=== PATIENT | female | born 1945 | race Two or more races ===

== ENCOUNTER 2017-05-27 17:26 | Emergency (ER) | payer MEDICARE, OTHER ==
--- NOTE | ~2017-05-27 | ER ---
PATIENT'S NAME: [facility] AGE: 72 Y [address] ROOM: [place], [place] [address] LOCATION: [facility] ADMIT DATE: 05/27/2017 ER/Outpatient Report DISCHARGE DATE: 05/27/2017 FAMILY PHYSICIAN: Jose Ahmadi MD ATTENDING PHYSICIAN: Khoa Reaves Time of Arrival: 1740 hours. Time of Exam: 1740 hours. CHIEF COMPLAINT: Wrong medication. HISTORY OF PRESENT ILLNESS: The patient states she was seen by her primary provider today and diagnosed with infection of the throat. She was to nut picker a prescription at [facility], which she did. She took a pill at 12 noon and then she started not feeling well and her daughter checked the bottle approximately 0.5 hour prior to arrival and noted that the medicine she took was actually supposed to be for somebody else, the patient had the same last name but different first name, so they did call and talk with [facility]. [facility] has recommended that she come in and be evaluated. She denies having any chest pain or shortness of breath. She states she just feels shaky. She does have some nausea, but has not vomited. She has had some chills, but has not felt well with this fever problem for the last 3 or 4 days. ALLERGIES: AMOXICILLIN AND AZITHROMYCIN. CURRENT MEDICATIONS: On her chart and were reviewed by me. PAST MEDICAL HISTORY: Asthma, hypertension, hypothyroidism, vertigo. PAST SURGERIES: Cholecystectomy. SOCIAL HISTORY: She denies use of tobacco, drugs, or alcohol. REVIEW OF SYSTEMS: All negative other than those mentioned in the HPI. PHYSICAL EXAMINATION: VITAL SIGNS: She weighed 76.1 kg. Blood pressure is 197/92, pulse of 86, PATIENT'S NAME: [facility] AGE: 72 Y [address] ROOM: [place], [place] [address] LOCATION: [facility] ADMIT DATE: 05/27/2017 ER/Outpatient Report DISCHARGE DATE: 05/27/2017 FAMILY PHYSICIAN: Jose Ahmadi MD ATTENDING PHYSICIAN: Khoa Reaves respirations 16, temperature of 98.1 tympanic, O2 saturation was 94% on room air. groundwater monitoring technician shows sinus rhythm. [place] Coma Scale is 15. GENERAL: She is awake, alert, and oriented x4. SKIN: [place], warm, and dry. RESPIRATIONS: Even and nonlabored. HEENT: Pupils are equal and reactive to light. Extraocular movements are intact. NECK: Supple. No lymphadenopathy. LUNGS: Lung sounds are clear throughout. HEART: Regular rate and rhythm. ABDOMEN: Soft, nondistended. Bowel sounds are present. NEUROLOGIC: The patient walked in with a steady even gait. EMERGENCY ROOM COURSE: Bonnie has reported the patient got Vyvanse 50 mg p.o. x1 dose and the antibiotic she is supposed to be on is doxycycline. The patient states she did nut picker her doxycycline. The patient was monitored, blood pressure did come down, and the lowest was 162/78. Her heart rate remained in the 80s. O2 sats remained greater 95%. She states with rest she was feeling better. Her monitoring engineer continued to be a sinus rhythm. IMPRESSION: Ingestion of wrong medication. PLAN: Home, rest, fluids. Take doxycycline as prescribed. Follow up with their primary provider if symptoms persist or worsen. They verbalized understanding. VANESSA HAQUE APRN FOR MD KANCHAN MUKHERJEE/callie /[id number] d: 05/27/17 2250 t: 06/06/17 0632, OUTPATIENT REPORT
== END 2017-05-27 18:44 | disposition disaster alternative care site (69) ==
LOC: GMED 17:26
DX: T50.991A Poisoning by other drugs, medicaments and biological substances, accidental (unintentional), initial encounter (principal); I10 Essential (primary) hypertension; J45.909 Unspecified asthma, uncomplicated; E03.9 Hypothyroidism, unspecified; Z90.49 Acquired absence of other specified parts of digestive tract; Z88.1 Allergy status to other antibiotic agents